=== PATIENT | female | born 1985 | race Caucasian/White ===

== ENCOUNTER 2025-02-04 10:35 | Inpatient (IN) | payer OTHER, SELFPAY ==
[2025-02-04] VITALS (58 sets, daily range): BP systolic 101–140; BP diastolic 58–100; PULSE 97–123; RESP 15–36; TEMP 37.6; O2SAT 96–100; BMI 18.8; BMI 19.8
--- NOTE | 2025-02-04 10:38 | CTR_ITS ---
PROCEDURE INFORMATION: Exam: CT Abdomen And Pelvis With Contrast Exam date and time: 02/04/2025 11:19 AM Age: 40 years old Clinical indication: Abdominal pain; Epigastric; Additional info: Abd pain TECHNIQUE: Imaging protocol: Computed tomography of the abdomen and pelvis with contrast. Axial, coronal and sagittal reformatted images were created and reviewed. Radiation optimization: All CT scans at this facility use at least one of these dose optimization techniques: automated exposure control; mA and/or kV adjustment per patient size (includes targeted exams where dose is matched to clinical indication); or iterative reconstruction. Contrast material: OMNI 350; Contrast volume: 80 ml; Contrast route: INTRAVENOUS (IV); COMPARISON: No relevant prior studies available. RADIATION DOSE METRICS: Total DLP (mGy-cm): 341.93 FINDINGS: Esophagus: Mild nonspecific distal esophageal wall thickening, suggesting chronic reflux/esophagitis. Liver: Diffuse hepatic steatosis. Gallbladder and biliary ducts: No radiodense gallstones. No biliary ductal dilatation. Pancreas: Unremarkable. Spleen: 1.9 cm splenic cyst. Adrenal glands: Normal. No mass. Kidneys and ureters: 4 mm low-density left renal lesion, too small to characterize. 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 No radiodense calculi. No hydronephrosis. Stomach and bowel: No bowel wall thickening. No obstruction. No pneumatosis. Appendix: Normal. Intraperitoneal space: No free fluid. No organized fluid collection. No free air. Vasculature: Unremarkable. No aneurysm. Lymph nodes: No pathologically enlarged lymph nodes. Urinary bladder: Unremarkable as visualized. Reproductive: Unremarkable. Bones/joints: No acute osseous abnormality. Soft tissues: Unremarkable. CT/CT abdomen pelvis w con* [id number]: 1. No CT evidence of acute intra-abdominal or pelvic pathology. 2. Additional findings, as above. COMMENTS: Consistent with the [employer]'s Incidental Findings Committee white paper (J Am Evie Radiol 2018): Any incidental renal lesion less than 1 cm or classified as too small to characterize, or any incidental cystic renal lesion characterized as simple-appearing, is likely benign. No follow-up imaging is recommended for these lesions per consensus recommendations based on imaging criteria.
--- NOTE | 2025-02-04 10:48 | ED_ITS ---
HPI - Abdominal Pain 2 General: Chief Complaint: Nausea/Vomiting/Diarrhea Stated Complaint: N/V Blood ABD Pain Time Seen by Provider: 02/04/25 10:38 Source: patient Mode of arrival: ambulatory Limitations: no limitations History of Present Illness: 40-year-old female states that she has b een having epigastric abdominal pain since this morning. States the pain is very sharp in nature she has had multiple episodes of nausea vomiting as well. Rates her pain a 7 out of 10 denies any fevers denies any diarrhea. Denies any history abdominal surgeries Related Data Home Medications ?Medication ?Instructions ?Recorded ?Confirmed dicyclomine 20 mg tablet 20 mg PO QID PRN ibs 5 02/04/25 doxycycline monohydrate 100 mg 100 mg PO BID 02/04/25 02/04/25 capsule etonogestrel 0.12 mg-ethinyl See Rx Instructions .Rout e .COMPLEX 02/04/25 02/04/25 estradiol 0.015 mg/24 hr vaginal ring (EluRyng) Allergies Allergy/AdvReac Type Severity Reaction Status Date / Time Penicillins Allergy Unknown Verified 02/04/25 10:49 Review of Systems 2 GI: Reports: abdominal pain Physical Exam 2 Const: COMMON NORMALS: no acute distress, patient oriented x3 and healthy appearing HENMT: COMMON NORMALS: normocephalic and atraumatic HEAD & SCALP: n ormocephalic and atraumatic Neck/C-Spine: COMMON NORMALS: full ROM and supple Chest: COMMONS NORMALS: normal inspection of the chest Resp: COMMON NORMALS: normal respiratory effort Cardio: COMMON NORMALS: regular rate, regular rhythm and No murmurs present (Cardio) RATE: regular rate RHYTHM: regular rhythm GI: COMMON NORMALS: Normal to inspection, nondistended, normoactive bowel sounds present, Soft to palpation and no masses PALPATION: Yes Soft to palpation OTHER: epigastric tenderness Extremity: COMMON NORMALS: normal to inspection and full ROM Neuro: COMMON NORMALS: patient oriented x3, moves all extremities and no focal motor deficits Psych: COMMON NORMALS: mental status grossly normal, Normal thought process present and cooperative THOUGHT PROCESS: Normal thought process present Skin: COMMON NORMALS: no rashes or lesions noted and no wounds GENERAL SKIN EXAM: no rashes or lesions noted Course 2 Vital Signs: Vital signs: Vital Signs Pulse Rate 102 H 02/04/25 10:59 Respiratory Rate 17 02/04/25 10:59 Blood Pressure 133/90 02/04/25 10:59 Pulse Oximetry 100 02/04/25 10:59 Oxygen Delivery Me thod Room Air 02/04/25 10:59 MDM - Abdominal Pain Medical Decision Making Patient presents here with nausea vomiting all abdominal pain differential includes bowel obstruction, appendicitis, pancreatitis. Did a CT scan showed no above findings. Patient was found to be in DKA. She has no history of diabetes does have an elevated anion gap CO2 of 5 along with elevated glucose. Patient was given IV fluids here along with insulin drip. Had replace potassium as her potassium was 3.8. I did speak to Dr. Alberts will admit to ICU critical care time 40 minutesThe high probability of a clinically significant, sudden or life threatening deterioration of the patient's endocrine system(s) required my full and direct attention, intervention and personal management. The critical care time is as shown. This time is in addition to time spent performing any reported procedures but includes the following: x data and vital sign review and interpretation x patient assessment, examination and intervention x documentation x medication orders and management Medical Records I reviewed the patient's medical records. Lab Data I reviewed the patient's lab results. 02/04/25 10:44 02/04/25 10:44 Labs/Radiology: Laboratory Results WBC 16.35 10^3/uL (3.29-11.43) H 02/04/25 10:44 RBC 4.71 10^6/uL (3.85-5.65) 02/04/25 10:44 Hgb 14.00 g/dL (11.27-16.99) 02/04/25 10:44 Hct 42.0 % (36-47) 02/04/25 10:44 MCV 89.2 fl (85-98) 02/04/25 10:44 MCH 29.7 pg (27-33) 02/04/25 10:44 MCHC 33.3 g/dL (30-55) 02/04/25 10:44 RDW 11.7 % (12.1-15.1) L 02/04/25 10:44 Plt Count 339 10^3/cmm (157-399) 02/04/25 10:44 MPV 10.2 fL (7.4-10.4) 02/04/25 10:44 Neut % (Auto) 84.5 % 02/04/25 10:44 Lymph % (Auto) 11.7 % 02/04/25 10:44 Pratt % (Auto) 2.6 % 02/04/25 10:44 Eos % (Auto) 0.0 % 02/04/25 10:44 Baso % (Auto) 0.2 % 02/04/25 10:44 Neut # (Auto) 13.81 10^3/uL (1.8-7.7) H 02/04/25 10:44 Lymph # (Auto) 1.9 10^3/uL (0.8-4.8) 02/04/25 10:44 Pratt # (Auto) 0.4 10^3/uL (0.2-0.9) 02/04/25 10:44 Eos # (Auto) 0.0 10^3/uL (0.0-0.8) 02/04/25 10:44 Baso # (Auto) 0.0 10^3/uL (0.0-0.1) 02/04/25 10:44 Nucleated RBC % (auto) 0 % 02/04/25 10:44 Nucleated RBCs # 0.0 /100WBC 02/04/25 10:44 Sodium 128 mmol/L (136-145) L 02/04/25 10:44 Potassium 3.8 mmol/L (3.5-5.1) 02/04/25 10:44 Chloride 87 mmol/L (98-107) L 02/04/25 10:44 Carbon Dioxide 5 mmol/L (22-29) L* 02/04/25 10:44 Anion Gap 39.8 (5-19) H 02/04/25 10:44 BUN 21 mg/dL (6-20) H 02/04/25 10:44 Creatinine 0.9 mg/dL (0.5-0.9) 02/04/25 10:44 GFR Calculation 68.7 mL/min (90-130) L 02/04/25 10:44 Glucose 474 mg/dL (65-115) H 02/04/25 10:44 Calculated Osmolality 290 mOsm/kg (285-295) 02/04/25 10:44 Calcium 9.9 mg/dL (8.5-10.5) 02/04/25 10:44 Total Bilirubin 0.5 mg/dL (0.15-1.2) 02/04/25 10:44 AST 11 U/L (0-32) 02/04/25 10:44 ALT 20 U/L (0-33) 02/04/25 10:44 Alkaline Phosphatase 87 U/L (35-105) 02/04/25 10:44 Total Protein 8.8 g/dL (6.6-8.7) H 02/04/25 10:44 Albumin 4.5 g/dL (3.5-5.2) 02/04/25 10:44 Globulin 4.3 g/dL (1.3-4.6) 02/04/25 10:44 Lipase 11 U/L (13-60) L 02/04/25 10:44 HCG, Qual Negative (Negative) 02/04/25 10:44 Urine Color Yellow (Yellow) 02/04/25 11:11 Urine Appearance Clear (CLEAR) 02/04/25 11:11 Urine pH 5.0 (5-7) 02/04/25 11:11 Ur Specific [place] 1.026 (1.005-1.030) 02/04/25 11:11 Urine Protein 1+ (Negative) A 02/04/25 11:11 Urine Glucose (UA) 3+ (Normal) H 02/04/25 11:11 Urine Ketones 4+ (Negative) 02/04/25 11:11 Urine Blood Trace (Negative) A 02/04/25 11:11 Urine Nitrate Negative (Negative) 02/04/25 11:11 Urine Bilirubin Negative (Negative) 02/04/25 11:11 Urine Urobilinogen 0.2 mg/dL (Negative) 02/04/25 11:11 Ur Leukocyte Esterase Negative (Negative) 02/04/25 11:11 Urine RBC 3-5 /hpf (0-2) 02/04/25 11:11 Urine WBC 6-10 /hpf (0-5) 02/04/25 11:11 Ur Squamous Epith Cells 11-20 /hpf (0-5) H 02/04/25 11:11 Amorphous Sediment Not Reportable 02/04/25 11:11 Urine Bacteria 2+ /hpf (NONE) H 02/04/25 11:11 Hyaline Casts 4.52 /lpf 02/04/25 11:11 Urine Yeast 2+ /hpf H 02/04/25 11:11 Serum Ketones Positive (Negative) H 02/04/25 10:44 All radiology interpretation(s) finalized by discharge Critical Care Time 2 Critical Care Time: Critical Care Time: Yes Total Critical Care Time: 40 Attestation: The high probability of a clinically significant, sudden or life threatening deterioration of the patient's endocrine system(s) required my full and direct attention, intervention and personal management. The critical care time is as shown. This time is in addition to time spent performing any reported procedures but includes the following: [x] Data and vital sign review and interpretation [x] Patient assessment, examination and intervention [x] Documentation [x] Medication orders and management Discharge Plan Discharge Patient Disposition: Admitted As Inpatient Clinical Impression: DKA (diabetic ketoacidosis) Condition: Stable Coding Level of Care Code ED Steam [employer] Control Room Operator for Tomas Birch
[2025-02-04 10:49] LABS: Hematocrit 42.0 % (36-47); Hemoglobin 14.00 g/dL (11.27-16.99); Mean Corpuscular HGB Conc 33.3 g/dL (30-55); Mean Corpuscular Hemoglobin 29.7 pg (27-33); Mean Corpuscular Volume 89.2 fl (85-98); Nucleated Red Blood Cells % 0 %; Platelet Count 339 10^3/cmm (157-399); Red Blood Count 4.71 10^6/uL (3.85-5.65); White Blood Count 16.35 10^3/uL (3.29-11.43)
--- OUTSIDE RECORDS SUMMARY | 2025-02-04 10:50 | XMS_ITS | Data Portability ---
Author Organization [facility] Address [address] [place] [phone] Care Team Providers Care Comparison Shopper Name Role Phone GUS SALGADO Primary Care Provider Unavailabl e Assessment No assessment recorded. Plan of Treatment Reminders Order Date Submit Date Provider Last Modified By Organization Details Last Modified Time Details Appointments None recorded. Lab None recorded. Referral None recorded. Procedures None recorded. Surgeries None recorded. Imaging None recorded. Medication Orders erythromyci n 5 mg/gram (0.5 %) eye ointment 2024 025 UMESH [id number], [address], [facility] [address], [place], [address], 08:48:05 mupirocin 2 % topical ointment 2022 023 [email or web address] [facility] #[id number], [address], [facility] [address], [place], [address], 08:30:54 neomycin-po lymyxin-dex ameth 3.5 mg/mL-10,00 0 unit/mL-0.1 % eye drops 2022 023 [email or web address] [id number], [address], [facility], [place], [address], 08:30:47 Patient TargetsNo targets recorded. Patient InstructionsNo instructions recorded. Reason for Referral None Reported. 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 3 08:45:33 Problem Notes None recorded. Medical Equipment None Reported. Allergies Allergen ID Allergen Name Allergen Category Reaction Reaction Severity Criticality Documentation Date Start Date Code Code System Note Provider Name and Address Organization Details Recorded Time 5013 Product containin g penicilli n (product) medicatio n Not available Not available Not available 09/08/2022 89006 8001 SNOMED [facility] 12:29:12 Medications Name Sig Start Date Stop Date Status Note LastModified by Organization Details LastModified Time prednisolon e acetate 1 % eye drops,suspe nsion INSTILL 1 DROP INTO AFFECTED EYE 4 TIMES A DAY active Not Available Not Available No t Available dicyclomine 20 mg tablet TAKE 1 TABLET BY MOUTH FOUR TIMES A DAY FOR 10 DAYS active Not Available Not Available No t Available erythromyci n 5 mg/gram (0.5 %) eye ointment APPLY 1 CM RIBBON INTO THE LOWER EYELID IN THE AFFECTED EYE(S) 4-5 TIMES PER DAY FOR UP TO 1 WEEK active Not Available Not Available No t Available neomycin-po lymyxin-dex ameth 3.5 mg/mL-10,00 0 unit/mL-0.1 % eye drops INSTILL 1 DROP INTO AFFECTED EYE(S) EVERY 3 TO 4 HOURS 10/03 completed Not Available Not Available Not Available mupirocin 2 % topical ointment APPLY A SMALL AMOUNT TO AFFECTED AREA 3 TIMES A DAY 10/03 completed Not Available Not Available Not Available EluRyng 0.12 mg-0.015 mg/24 hr vaginal ring INSERT 1 RING & WEAR CONTINUOU SLY FOR 3 WEEKS REMOVE FOR 1 WEEK. REPEAT WITH NEW RING. active Not Available Not Available No t Available Vitals Date Recorded Body height Body mass index (BMI) Body weight Oxygen saturation Heart rate Body temperature Systolic And Diastolic Provider Name and Address Organization Details Last Updated DateTime 3 154.94 cm 19.7 kg/m2 55704.6 1 g 97 % 102 /min 97.7 [degF] 115/62 mm[Hg] FORTINO RANDOLPH [facility] 3 12:28:49 Date Recorded Body height Body mass index (BMI) Body weight Respiratory rate Oxygen saturation Heart rate Body temperature Systolic And Diastolic Provider Name and Address Organization Details Last Updated DateTime 5 154.94 cm 19.3 kg/m2 96137.4 2 g 17 /min 99 % 89 /min 98.2 [degF] 114/78 mm[Hg] CATHERINE BOCANEGRA [facility] 5 08:30:09 Date Recorded Body height Body weight Body mass index (BMI) Oxygen saturation Heart rate Respiratory rate Body temperature Systolic And Diastolic Provider Name and Address Organization Details Last Updated DateTime 3 154.94 cm 92677.2 8 g 19.9 kg/m2 99 % 89 /min 16 /min 97.1 [degF] 128/84 mm[Hg] Rosario Colbychristian [facility] 3 08:36:41 Social History Question Answer Notes LastModified by Organizat ion Details LastModified Time Tobacco Smoking Status Former Smoker CATHERINE BOCANEGRA [facility] 10/03/2024 08:31:23 When Did You Quit Smoking? 6-10yearssin celastcigare tte [email or web address] Information not available 10/03/2024 What Was The Date Of Your Most Recent Tobacco Screening? 10/03/2024 [email or web address] Information not available 10/03/2024 Sex: Unknown Functional Status None recorded. Mental Status None recorded. Family History Nothing Reported. Medical History No medical history recorded. Gynecological HistoryNo gynecological history recorded. Obstetrics History GPAL:G 0 P 0 0 0 0 Past Encounters Encounter ID Performer Location Encounter Start Date Encounter Closed Date Diagnosis/Indication Diagnosis SNOMED-CT Code Diagnosis ICD10 Code Diagnosis IMO Codes Diagnosis Note [id number] DEBBIE ANGEL PA-C [facility] ([facility] [address]) [address] [place] [address] 09/08/2022 11:31:49 09/08/2022 13:29:35 Acute conjunctivitis 47607080 H10.[address] 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 Possible reaction to some of the medication s that she has used to treat.. Encouraged patient to stop over-the-c ounter treatment and will start mupirocin. Educated the patient on wound care. Follow-up if symptoms do not improve. [id number] Gus Salgado DO [facility] ([facility] [address]) [address] [place] [phone] 10/03/2024 08:22:13 10/03/2024 08:55:51 Abrasion of left cornea 1938356620 8639892 S05.02XA [id number] will start abx ointment. ok to use eye rinse as well. use sunglasses to decrease light. Return to office with no improvemen t or any problems. Go to ER with severe worsening or severe problems. Health Concerns Section Related Observation LastModified by Organization Detai ls LastModified Time None Recorded Concern Status LastModified by Organization Details LastModified Time None Recorded Advance Directives Directive None Recorded Payers Insurance Date Sequence Insurance Name Policy Number Policy Honeycutt Covered Member ID Honeycutt Member ID Guarantor Name 10/10/2024 1 [facility] ([facility] [id number] Jazzy Ortiz [id number] Jazzy Ortiz Notes Date Note Type Note Provider Name and Address Organization Details Recorded Time 09/08/2022 text/html Red EyeReported by PatientHPIFor quality, patient reportsaching. For context, patient reportschemical exposure. For associated symptoms, patient reportsblurred vision,sensitivity to light,watery discharge from the eyes, andheadachebut reportsno eyelid edemaandno nausea/vomiting. For location, patient reportsright. For severity, patient reportsmoderate. For duration, patient reportsconstant. For onset/timing, patient [id number]. For modifying factors, patient reportsnothing gives relief.ROS as noted in the [facility] DEBBIE ANGEL PA-C [address] [place] [address], [phone], [facility] 09/08/2022 12:45:17 03/05/2023 text/html Skin LesionRepor neptali by PatientHPIFor associated symptoms, patient reportsdraining,lesio ns multiplying, andlesions spreadingbut reportsno fever,no nausea,no vomiting, andno diarrhea. For location, patient reportshand,abdomen, andleg. For quality, patient reportstender,drainag e, andbecoming more symptomatic. For severity, patient reportsmoderate. For duration, patient reports1 weeks. For timing, patient reportsgradual. For context, patient reportsno known trigger. For alleviating factors, patient reportsnone. For aggravating factors, patient reportsnone. For prior treatments, patient reportsotc topical treatment.ROS as noted in the [facility] Andrea Vasquez MD [address] [place] [address], [phone], [facility] 03/05/2023 08:56:59 10/03/2024 text/html ROS as noted in the [facility] walk-in; PCP Dr. Salgado Patient scratched her left eye last week. with her hair comb. Eye is painful. She had steroid eye drops from a previous infection and tried to use them, did not help.no purulence from eye. no vision change. just very senstive to light with clear watering. Gus Salgado, [address] [place] [address], [phone], [facility] 10/03/2024 08:49:49 OBGyn Episode No OBEpisode recorded.
[2025-02-04] MEDS: ondansetron 2 mg/ML SDV 2 mL 4 MG IVP ×3 (10:52→22:18)
[2025-02-04] MEDS: morphine 4 mg/mL SDV 1 mL IVP (10:53)
[2025-02-04 11:08] LABS: HCG, Serum Qual Negative (Negative)
[2025-02-04 11:14] LABS: Alanine Aminotransferase 20 U/L (0-33); Albumin Level 4.5 g/dL (3.5-5.2); Alkaline Phosphatase 87 U/L (35-105); Anion Gap 39.8 (5-19); Aspartate Amino Transferase 11 U/L (0-32); Blood Urea Nitrogen 21 mg/dL (6-20); Calcium 9.9 mg/dL (8.5-10.5); Chloride 87 mmol/L (98-107); Globulin 4.3 g/dL (1.3-4.6); Glucose 474 mg/dL (65-115); Lipase 11 U/L (13-60); Osmolality Calculated 290 mOsm/kg (285-295); Potassium 3.8 mmol/L (3.5-5.1); Sodium 128 mmol/L (136-145); Total Protein 8.8 g/dL (6.6-8.7)
[2025-02-04] MEDS: iohexol 350 mg/mL 500 mL Btl (per mL) IV (11:24)
[2025-02-04 11:25] LABS: Glucose Urine UA 3+ (Normal); Nitrate Urine Negative (Negative); Specific Gravity, Urine 1.026 (1.005-1.030)
[2025-02-04 11:30] LABS: Carbon Dioxide 5 mmol/L (22-29)
[2025-02-04 11:30] LABS: Add Urine Microscopic? YES
[2025-02-04 11:37] LABS: Ketone (Acetest) Serum Positive (Negative)
[2025-02-04 11:46] LABS: UA Slide Review UA Slide Review Perf
[2025-02-04 12:06] LABS: Arterial Blood Gas Hematocrit 40.7 % (37-47); Blood Gas Operator Identificat GD; Blood Gas Sample Site Brachial, right; Blood Gas Sample Type Arterial; HCO3 ABG 4.4 mmol/L (22-26); PO2 ABG 137.0 mmHg (80.0-100.0); PO2 FiO2 Ratio Arterial Blood 652
[2025-02-04 12:07] LABS: ABG PCO2 15.4 mmHg (35-45); ABG PH Result 7.06 (7.35-7.45)
[2025-02-04] MEDS: INSULIN REGULAR IN 0.9 % NACL 100 UNIT/100 ML BAG IV (12:10)
[2025-02-04] MEDS: potassium phosphate (mEq K) 40 MEQ in sodium chloride 0.9% (100 ml) 100 ML 27.25 MEQ IV (12:15)
--- NOTE | 2025-02-04 12:25 | ECG_ITS ---
[facility] Test Date: 2025-02-04 Pat Name: Jazzy Ortiz Department: Room: ICU10 Gender: Female Internal Carver: : 1985 Requested By: Niko Doe Order Number: [id number] Luana MD: Seth Lane M.D. Measurements Intervals [place] Rate: 110 P: 73 OR: 124 QRS: 66 QRSD: 95 T: 51 QT: 349 QTc: 473 Interpretive Statements SINUS TACHYCARDIA POSSIBLE LEFT ATRIAL ENLARGEMENT [-0.1mV P-WAVE IN V1/V2] INCOMPLETE RIGHT BUNDLE BRANCH BLOCK [90+ ms QRS DURATION, TERMINAL R IN V1/V2, 40+ ms S IN I/aVL/V4/V5/V6] MODERATE T-WAVE ABNORMALITY, CONSIDER ANTERIOR ISCHEMIA [-0.1+ mV T-WAVE IN V3/V4] No previous ECG available for comparison Electronically Signed On 02-04-2025 14:21:03 RES HABILITATION ASSISTANT by Seth Lane M.D. [email or web address]
--- NOTE | 2025-02-04 12:41 | P.HP_ITS ---
Providers/Chief Complaint 2 Admitting Physician: Niko Doe MD Chief Complaint: N/V Blood ABD Pain History of Present Illness Jazzy Ortiz is a 40 year old female with a past medical history of colitis, who presents [facility] due to nausea, vomiting, fatigue, malaise, reported fevers and chills. Currently patient is alert oriented x 3, follow commands, she does report right upper quadrant abdominal pain, reports subjective fevers and chills, she tells me that she noticed some facial swelling 2 days ago, and there was concerns for possible sinusitis, so she was started on doxycycline, no lip swelling, no tongue swelling, no shortness of breath, states that she has developed a rash on her face, she also reports intractable nausea vomiting, no bloody or black stools reported no recent travel, no sick contacts, no cough, no shortness of breath no chest pain, no recent travel, no known sick contacts, does have marijuana use, no alcohol use, prior history of smoking, Review of Systems 2 Const: Reports: fever(s), chills, fatigue and malaise Card: Denies: chest pain Resp: Denies: dyspnea GI: Reports: nausea and vomiting; Denies: abdominal pain or diarrhea : Denies: flank pain or difficulty voiding Musc: Denies: back pain Skin/Breast: Denies: rash Neuro: Denies: headache(s) Medications/Allergies Home Medications ?Medication ?Instructions ?Recorded ?Confirmed ?Last Taken ?Type dicyclomine 20 mg tablet 20 mg PO QID PRN ibs 5 02/04/25 Unknown History doxycycline monohydrate 100 mg 100 mg PO BID 02/04/25 02/04/25 02/04/25 History capsule etonogestrel 0.12 mg-ethinyl See Rx Instructions .Rout e .COMPLEX 02/04/25 02/04/25 Unknown History estradiol 0.015 mg/24 hr vaginal ring (EluRyng) Allergies Allergy/AdvReac Type Severity Reaction Status Date / Time Penicillins Allergy Unknown Verified 02/04/25 10:49 Vitals/I&O/Wt Last Vital Signs Pulse 112 H 02/04/25 12:39 Resp 16 02/04/25 12:39 BP 126/77 02/04/25 12:39 Pulse Ox 99 02/04/25 12:39 O2 Del Method Room Air 02/04/25 12:20 02/03/25 02/04/25 02/04/25 22:59 06:59 14:59 Intake Total 1000 / 1000 Balance 1000 / 1000 Weight last 48 hrs Weight 47.627 kg Weight 45.359 kg Physical Exam 2 Const: COMMON NORMALS: no acute distress and patient oriented x3 HENMT: COMMON NORMALS: normocephalic Eye: COMMON NORMALS: Equal, round and reactive pupils present Neck/C-Spine: COMMON NORMALS: full ROM and no lymphadenopathy Resp: COMMON NORMALS: normal respiratory effort, No retractions, No use of accessory muscles and clear to auscultation bilaterally AUSCULTATION: clear to auscultation bilaterally Cardio: COMMON NORMALS: regular rate, regular rhythm, S1 normal heart sound present and S2 normal heart sound present RATE: regular rate RHYTHM: r egular rhythm HEART SOUNDS: S1 normal heart sound present and S2 normal heart sound present GI: COMMON NORMALS: Normal to inspection, nondistended, normoactive bowel sounds present, Soft to palpation and non-tender : COMMON NORMALS: Yes no CVA tenderness Extremity: COMMON NORMALS: no calf tenderness and no pedal edema Neuro: COMMON NORMALS: patient oriented x3, CN's II-XII intact bilaterally and moves all extremities Psych: COMMON NORMALS: mental status grossly normal Data 02/04/25 10:44 02/04/25 10:44 A&P Assessment and plan 1. DKA (diabetic ketoacidosis): Plan: Diabetic ketoacidosis - No known history of type I or type 2 diabetes - Lipase within normal limits - A1c pending - UA with evidence of UTI - Chest x-ray ordered - Blood cultures ordered - Troponin series ordered - CRP, Pro-Tom, lactic acid -TSH -Lipid panel - Right upper quadrant ultrasound Plan - Has received 2 L fluid bolus, 60 mg of p.o. potassium, 40 mEq of potassium phosphorus in the emergency room - Will give another liter of fluid normal saline bolus -Start normal saline 150 cc an hour -BMP every 4 hours, phosphorus every 4 hours, magnesium every 4 hours -Once blood sugars less than 200 switch to D5 half-normal saline with 20 KCl -Recheck ABG at 4 PM will consider bicarb drip based on clinical progress -Vancomycin -Aztreonam -Blood cultures -Full code -Lovenox for DVT prophylaxis PDMP PDMP Reviewed: Not Reviewed Attestations 2 Medical Necessity Statement*: Patient requires hospitalization for diabetic ketoacidosis, inpatient, greater than 2 midnights Coding Level of Care Code Critical Care >/= 30 minutes Critical care time (in minutes): 45 The high probability of a clinically significant, sudden or life threatening deterioration, as referenced in this documentation, required my full and direct attention, intervention and personal management. The critical care time shown is in addition to time spent performing any reported separately billable procedures and includes the following: [x] Data and vital sign review and interpretation [x ] Patient assessment, examination and intervention [x] Medication orders and management [x] Patient/Family updates as able [x] Care Coordination and Documentation. Diagnoses DKA (diabetic ketoacidosis) E11.10
[2025-02-04 12:44] LABS: Troponin(5th) Baseline < 6 ng/L (0-10)
[2025-02-04 12:45] LABS: Lactic Sepsis W/Reflex 3.6 mmol/L (0.5-2.2)
[2025-02-04 12:46] LABS: PCP Screen Urine Negative (Negative)
[2025-02-04 12:54] LABS: Estmated Average Glucose 283; Hemoglobin A1C 11.5 % (4.0-6.0)
--- NOTE | 2025-02-04 12:56 | USR_ITS ---
PROCEDURE INFORMATION: Exam: US Abdomen, Limited; Right Upper Quadrant Exam date and time: 02/04/2025 3:31 PM Age: 40 years old Clinical indication: Abdominal pain; Localized; Right upper quadrant (ruq) TECHNIQUE: Imaging protocol: Real time ultrasound of the abdomen with image documentation. Limited exam focused on the right upper quadrant. COMPARISON: CT abdomen pelvis w con* [id number] 02/04/2025 11:19 AM FINDINGS: Liver: Hepatic length measures 14.2 cm. Hepatic steatosis. Indeterminate right hepatic hypoechoic lesion 2.3 x 1.4 x 1.7 cm. Hypoechoic area measuring 2 x 1 x 1 cm adjacent to the gallbladder. Gallbladder: No gallstone. Biliary ducts: Common bile duct measures 3 mm. Pancreas: Visualized pancreas is unremarkable. Right kidney: Right kidney 11.9 x 7.1 x 4.6 cm. Right renal lower pole echogenic lesion measuring 1.8 x 1.8 x 1.6 cm. Inferior vena cava: Visualized abdominal aorta and inferior vena cava are within normal limits. Portal venous: Main portal vein is patent with hepatopetal flow. US/US abdomen limited [id number] IMPRESSION: 1. Indeterminate right hepatic hypoechoic lesion 2.3 x 1.4 x 1.7 cm. Hypoechoic area measuring 2 x 1 x 1 cm adjacent to the gallbladder. These findings are not seen on the CAT scan. Findings could represent fatty sparing. MRI of the liver for further evaluation is advised. 2. Right renal lower pole echogenic lesion measuring 1.8 x 1.8 x 1.6 cm. 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 3. Hepatic steatosis.
[2025-02-04] MEDS: pantoprazole 40 mg SDV IVP (13:10)
[2025-02-04] MEDS: aztreonam 1,000 MG in sodium chloride 0.9% (plus) 50 ML 100 MG IV (13:10)
[2025-02-04 13:22] LABS: Cholesterol 253 mg/dL (0-200); HDL Cholesterol 74 mg/dL (60-100); Triglycerides 112 mg/dL (0-150)
[2025-02-04 13:28] LABS: Anion Gap 33.4 (5-19); Blood Urea Nitrogen 19 mg/dL (6-20); Calcium 8.7 mg/dL (8.5-10.5); Chloride 96 mmol/L (98-107); Glucose 394 mg/dL (65-115); Magnesium 2.1 mg/dL (1.7-2.3); Osmolality Calculated 289 mOsm/kg (285-295); Potassium 4.4 mmol/L (3.5-5.1); Sodium 130 mmol/L (136-145); Thyroid Stimulating Hormone 2.71 uIU/mL (0.27-4.20)
[2025-02-04 13:29] LABS: Procalcitonin 0.05 ng/mL (0-0.5)
[2025-02-04 13:35] LABS: Respiratory Syncytial Virus Ce NEGATIVE (Negative); SARS-CoV-2 PCR NEGATIVE (Negative)
[2025-02-04 13:42] LABS: Alcohol Level < 10 mg/dL (0-10)
[2025-02-04 13:44] LABS: Carbon Dioxide 5 mmol/L (22-29)
[2025-02-04 13:47] LABS: Reflex Lactate Order REFLEX LACTIC ORDERD
--- NOTE | 2025-02-04 13:49 | XRR_ITS ---
PROCEDURE INFORMATION: Exam: XR Chest Exam date and time: 02/04/2025 2:53 PM Age: 40 years old Clinical indication: Other: Dka; Additional info: Dka, infection? TECHNIQUE: Imaging protocol: Radiologic exam of the chest. Views: 1 view. COMPARISON: CT abdomen pelvis w con* [id number] 02/04/2025 11:19 AM FINDINGS: Lungs: Unremarkable. No consolidation. Pleural spaces: No pneumothorax. Heart/Mediastinum: Unremarkable. No cardiomegaly. Bones/joints: Unremarkable. XR/XR chest 1V portable [id number] IMPRESSION: No acute findings.
[2025-02-04 14:04] LABS: Lactic Acid level (Lactate) 1.5 mmol/L (0.5-2.2)
--- NOTE | 2025-02-04 14:45 | PC.NURSE ---
Physician communication: Contacted Dr. Doe for maintenance dextrose orders, BG 254. Order received to continue with Insulin drip till BG below 200 and then start d5 1/2 NS with 20kcl at 150cc/hr.
[2025-02-04] MEDS: metroNIDAZOLE IV 500 MG/100 ML PREMIX 100 MG IV ×2 (15:00→21:57)
[2025-02-04] MEDS: D5-NS 0.45% + KCL 20 mEq 20 MEQ/1,000 ML BAG 150 MEQ IV ×2 (15:35→21:57)
[2025-02-04 16:23] LABS: ABG PCO2 24.6 mmHg (35-45); ABG PH Result 7.23 (7.35-7.45); Arterial Blood Gas Hematocrit 33.8 % (37-47); Blood Gas Operator Identificat GD; Blood Gas Sample Site Brachial, right; Blood Gas Sample Type Arterial; HCO3 ABG 10.4 mmol/L (22-26); PO2 ABG 103.0 mmHg (80.0-100.0); PO2 FiO2 Ratio Arterial Blood 490
[2025-02-04 16:38] LABS: Troponin 5 6HR < 6.0 ng/L (0-10); Troponin 5 6HR Delta 0 ng/L (0-12)
[2025-02-04] MEDS: metoclopramide 5 mg/mL SDV 2 mL IVP (16:50)
[2025-02-04 18:11] LABS: Anion Gap 30.5 (5-19); Blood Urea Nitrogen 19 mg/dL (6-20); Calcium 8.0 mg/dL (8.5-10.5); Chloride 104 mmol/L (98-107); Glucose 283 mg/dL (65-115); Osmolality Calculated 293 mOsm/kg (285-295); Potassium 4.5 mmol/L (3.5-5.1); Sodium 135 mmol/L (136-145)
[2025-02-04 18:13] LABS: Carbon Dioxide 5 mmol/L (22-29)
[2025-02-04 18:19] LABS: Magnesium 1.9 mg/dL (1.7-2.3)
[2025-02-04 19:07] LABS: Anion Gap 23.8 (5-19); Blood Urea Nitrogen 11 mg/dL (6-20); Calcium 7.7 mg/dL (8.5-10.5); Chloride 108 mmol/L (98-107); Glucose 232 mg/dL (65-115); Magnesium 1.8 mg/dL (1.7-2.3); Osmolality Calculated 289 mOsm/kg (285-295); Potassium 4.8 mmol/L (3.5-5.1); Sodium 136 mmol/L (136-145)
[2025-02-04 19:08] LABS: Carbon Dioxide 9 mmol/L (22-29)
[2025-02-04 21:30] LABS: Anion Gap 21.1 (5-19); Blood Urea Nitrogen 9 mg/dL (6-20); Calcium 7.6 mg/dL (8.5-10.5); Carbon Dioxide 10 mmol/L (22-29); Chloride 108 mmol/L (98-107); Glucose 255 mg/dL (65-115); Magnesium 1.7 mg/dL (1.7-2.3); Osmolality Calculated 287 mOsm/kg (285-295); Potassium 4.1 mmol/L (3.5-5.1); Sodium 135 mmol/L (136-145)
[2025-02-05] VITALS (38 sets, daily range): BP systolic 103–132; BP diastolic 61–98; PULSE 85–110; RESP 16–37; TEMP 36.7–37.6; O2SAT 95–99
[2025-02-05] MEDS: pantoprazole 40 mg SDV IVP ×2 (00:57→12:44)
[2025-02-05] MEDS: aztreonam 1,000 MG in sodium chloride 0.9% (plus) 50 ML 100 MG IV ×2 (00:57→12:44)
[2025-02-05] MEDS: vancomycin 500 MG in sodium chloride 0.9% (plus) 100 ML 200 MG IV (01:49)
[2025-02-05 02:22] LABS: Anion Gap 16.7 (5-19); Blood Urea Nitrogen 6 mg/dL (6-20); Calcium 7.3 mg/dL (8.5-10.5); Carbon Dioxide 14 mmol/L (22-29); Chloride 109 mmol/L (98-107); Glucose 232 mg/dL (65-115); Magnesium 1.7 mg/dL (1.7-2.3); Osmolality Calculated 287 mOsm/kg (285-295); Potassium 3.7 mmol/L (3.5-5.1); Sodium 136 mmol/L (136-145)
[2025-02-05 04:57] LABS: Hematocrit 26.9 % (36-47); Hemoglobin 9.00 g/dL (11.27-16.99); Mean Corpuscular HGB Conc 33.5 g/dL (30-55); Mean Corpuscular Hemoglobin 29.6 pg (27-33); Mean Corpuscular Volume 88.5 fl (85-98); Nucleated Red Blood Cells % 0 %; Platelet Count 193 10^3/cmm (157-399); Red Blood Count 3.04 10^6/uL (3.85-5.65); White Blood Count 11.48 10^3/uL (3.29-11.43)
[2025-02-05] MEDS: D5-NS 0.45% + KCL 20 mEq 20 MEQ/1,000 ML BAG 150 MEQ IV (05:11)
[2025-02-05] MEDS: metroNIDAZOLE IV 500 MG/100 ML PREMIX 100 MG IV ×3 (05:14→21:18)
[2025-02-05 05:17] LABS: Alanine Aminotransferase 11 U/L (0-33); Albumin Level 2.9 g/dL (3.5-5.2); Alkaline Phosphatase 52 U/L (35-105); Anion Gap 14.6 (5-19); Aspartate Amino Transferase 10 U/L (0-32); Blood Urea Nitrogen 4 mg/dL (6-20); Calcium 7.2 mg/dL (8.5-10.5); Carbon Dioxide 16 mmol/L (22-29); Chloride 108 mmol/L (98-107); Globulin 2.5 g/dL (1.3-4.6); Glucose 214 mg/dL (65-115); Magnesium 1.7 mg/dL (1.7-2.3); Osmolality Calculated 283 mOsm/kg (285-295); Potassium 3.6 mmol/L (3.5-5.1); Sodium 135 mmol/L (136-145); Total Protein 5.4 g/dL (6.6-8.7)
[2025-02-05] MEDS: insulin glargine 100 units/1 mL 9 UNIT SUBCUT (06:00)
[2025-02-05] MEDS: metoclopramide 5 mg/mL SDV 2 mL IVP (08:28)
--- NOTE | 2025-02-05 09:22 | CTR_ITS ---
PROCEDURE INFORMATION: Exam: CT Head Without Contrast Exam date and time: 02/05/2025 10:21 AM Age: 40 years old Clinical indication: Injury or trauma; Other: Dog scratch inner upper lip; Laceration; Without residual foreign body; Additional info: Dog scratch, in mouth, under upper gum, facial swelling TECHNIQUE: Imaging protocol: Computed tomography of the head without contrast. Radiation optimization: All CT scans at this facility use at least one of these dose optimization techniques: automated exposure control; mA and/or kV adjustment per patient size (includes targeted exams where dose is matched to clinical indication); or iterative reconstruction. COMPARISON: CT facial bones w con [id number] 02/05/2025 10:21 AM RADIATION DOSE METRICS: Total DLP (mGy-cm): 1020.5 FINDINGS: Brain: Normal. No hemorrhage. Unremarkable white matter. No mass effect. Cerebral ventricles: No ventriculomegaly. Paranasal sinuses: Visualized sinuses are unremarkable. No fluid levels. Mastoid air cells: Visualized mastoid air cells are well aerated. Bones: Unremarkable. No acute fracture. Soft tissues: Unremarkable. CT/CT head con* [id number] IMPRESSION: No acute intracranial abnormality.
--- NOTE | 2025-02-05 09:22 | CTR_ITS ---
PROCEDURE INFORMATION: Exam: CT Maxillofacial With Contrast Exam date and time: 02/05/2025 10:21 AM Age: 40 years old Clinical indication: Injury or trauma; Other: Dog scratch inside upper lip; Laceration; Lip/oral cavity; Not specified; Additional info: Dog scratch, under upper gum, facial swelling, R/O abscess TECHNIQUE: Imaging protocol: Computed tomography of the face with contrast. Radiation optimization: All CT scans at this facility use at least one of these dose optimization techniques: automated exposure control; mA and/or kV adjustment per patient size (includes targeted exams where dose is matched to clinical indication); or iterative reconstruction. Contrast material: OMNI 350; Contrast volume: 75 ml; Contrast route: INTRAVENOUS (IV); COMPARISON: CT head wo con* [id number] 02/05/2025 10:21 AM RADIATION DOSE METRICS: Total DLP (mGy-cm): 288 FINDINGS: Paranasal sinuses: There is mild bilateral maxillary sinus thickening and contraction of the left maxillary sinus. There is ethmoid air cell thickening. There is no acute paranasal sinus fracture. Orbital cavities: Orbits are normal. Globes are unremarkable. Bones: No acute fracture. Soft tissues: There is a subperiosteal abscess adjacent to the anterior aspect of the malar heart palate and anterior maxillary spine measuring 0.5 x 1.8 x 0.8 cm. There is a surrounding significant soft tissue inflammation. In addition, there is a periapical abscess within the hard palate. This measures up to [address]/CT facial bones w con [id number] IMPRESSION: 1. Findings of a subperiosteal abscess anterior to the anterior maxillary spine and heart palate measuring up to 1.8 cm. 2. Periapical abscess involving the left 1st central incisor. 3. Contraction of the left maxillary sinus with mucosal thickening and mild right maxillary sinus mucosal thickening with mild ethmoid sinus mucosal thickening.
[2025-02-05 09:28] LABS: Anion Gap 16.3 (5-19); Blood Urea Nitrogen 3 mg/dL (6-20); Calcium 7.2 mg/dL (8.5-10.5); Carbon Dioxide 15 mmol/L (22-29); Chloride 105 mmol/L (98-107); Glucose 200 mg/dL (65-115); Osmolality Calculated 278 mOsm/kg (285-295); Potassium 3.3 mmol/L (3.5-5.1); Sodium 133 mmol/L (136-145)
[2025-02-05] MEDS: iohexol 350 mg/mL 500 mL Btl (per mL) IV (10:26)
--- NOTE | 2025-02-05 12:00 | P.PN_ITS ---
Subjective 2 Subjective: - Patient was seen this morning - She is alert oriented x 3, follows all commands - No nausea, no vomiting, no abdominal p ain - She was transition to a diet overnight , - Anion gap closed, transition to subcu insulin, Lantus - Discussed my concerns for source of in fection - She tells me that she was placed on do xycycline for concerns for sinusitis without improvement - She tells me that she was playing with her dog about a week ago when her dog accidentally clawed her inside her mouth, just above her upper central incisor at the level of the gum -Her dog is vaccinated, vaccinated for r abies, no history of rabies, - Since then she has had a pain in that location - She has had some swelling of her upper lip, in the philtrum, - No headache, no blurry vision, CT facial bone CT/CT facial bones w con [id number] IMPRESSION: 1. Findings of a subperiosteal abscess a nterior to the anterior maxillary spine and heart palate measuring up to 1.8 cm. 2. Periapical abscess involving the left 1st central incisor. 3. Contraction of the left maxillary sin us with mucosal thickening and mild right maxillary sinus mucosal thickening with mild ethmoid sinus mucosal thickening. -Patient already on IV antibiotics, vanc omycin, aztreonam, Flagyl, with a history of penicillin allergy - Spoke to [facility] - Given abscess, location, spoke to [facility], will discuss case with oral maxillary surgery for their consideration of surgical drainage inpatient versus outpatient versus medical management Vitals/I&O/Wt Last Vital Signs Temp 99.0 F 02/05/25 07:21 Pulse 94 02/05/25 10:00 Resp 24 H 02/05/25 10:00 BP 116/75 02/05/25 10:00 Pulse Ox 98 02/05/25 10:33 O2 Del Method Room Air 02/05/25 10:33 02/04/25 02/05/25 02/05/25 22:59 06:59 14:59 Intake Total 2473.8239 / 4535.4819 2428.500 / 6963.9819 926.7 / 926.7 Output Total 1550 / 1550 650 / 2200 Balance 923.8239 / 2985.4819 1778.500 / 4763.9819 926.7 / 926.7 Weight last 48 hrs Weight 47 kg Weight 47.627 kg Weight 47.627 kg Weight 45.359 kg Physical Exam 2 Const: COMMON NORMALS: no acute distress and patient oriented x3 HENMT: OTHER: Patient has swelling above the upper lip, tenderness Swelling and tenderness of the philtrum First to central incisors, palpable tenderness at the gumline, Area appears to be superficial abscess, tender to palpation Posterior pharynx no erythema, no uvular deviation, Nasal pharynx, no palpable tenderness around nasal bone, no facial tenderness to palpation bilateral maxillary sinuses Eye: COMMON NORMALS: Equal, round and reactive pupils present and EOMs intact bilaterally PUPIL: Yes Equal, round and reactive pupils present Resp: COMMON NORMALS: normal respiratory effort, No retractions, No use of accessory muscles and clear to auscultation bilaterally AUSCULTATION: clear to auscultation bilaterally Cardio: COMMON NORMALS: regular rate, regular rhythm, S1 normal heart sound present and S2 normal heart sound present RATE: regular rate RHYTHM: r egular rhythm HEART SOUNDS: S1 normal heart sound present and S2 normal heart sound present GI: COMMON NORMALS: Normal to inspection, nondistended, normoactive bowel sounds present and non-tender Extremity: COMMON NORMALS: no pedal edema Neuro: COMMON NORMALS: patient oriented x3 Psych: COMMON NORMALS: mental status grossly normal Data 02/05/25 04:51 02/05/25 08:55 Micro: Microbiology 02/04/25 12:45 Blood Culture - Preliminary Blood SPECIMEN COLLECTED 02/04/25 12:48 Blood Culture - Preliminary Blood SPECIMEN COLLECTED A&P Assessment and plan 1. DKA (diabetic ketoacidosis): Plan: Diabetic ketoacidosis, now resolved - No known history of type I or type 2 diabetes - Lipase within normal limits - A1c 11 - UA with evidence of UTI - Blood cultures ordered - Anion gap closed, transition to subcu insulin, Lantus Plan - Continue moderate dose sliding scale - Continue Lantus -Diabetic education Subperiosteal abscess anterior to anterior maxillary spine and hard palate measuring up to 1.8 cm, periapical abscess involving left first central incisor CT/CT facial bones w con [id number] IMPRESSION: 1. Findings of a subperiosteal abscess anterior to the anterior maxillary spine and heart palate measuring up to 1.8 cm. 2. Periapical abscess involving the left 1st central incisor. 3. Contraction of the left maxillary sinus with mucosal thickening and mild right maxillary sinus mucosal thickening with mild ethmoid sinus mucosal thickening. -Vancomycin -Aztreonam -Blood cultures -Full code -Lovenox for DVT prophylaxis PDMP PDMP Reviewed: Not Reviewed Attestations 2 Medical Necessity Statement*: Patient requires hospitalization for abscess requiring IV antibiotics, oral maxillary surgery consultation, DKA Diagnoses DKA (diabetic ketoacidosis) E11.10
--- NOTE | 2025-02-05 14:55 | PHA.VACGOAL ---
Vancomycin Goal - Goal Vancomycin Goal:: 15-20 mg/L - Therapy Current therapy:: Other Antibiotic (AZTREONAM/METRONIDAZOLE) Day of therpy:: Day [1]of [] . Actual body weight (kg): 47 kg - Data Labs: WBC 11.48 10^3/uL (3.29-11.43) H 02/05/25 04:51 Corrected WBC Cancelled 02/05/25 04:05 RBC 3.04 10^6/uL (3.85-5.65) L 02/05/25 04:51 Hgb 9.00 g/dL (11.27-16.99) L D 02/05/25 04:51 Hct 26.9 % (36-47) L D 02/05/25 04:51 MCV 88.5 fl (85-98) 02/05/25 04:51 MCH 29.6 pg (27-33) 02/05/25 04:51 MCHC 33.5 g/dL (30-55) 02/05/25 04:51 RDW 11.9 % (12.1-15.1) L 02/05/25 04:51 Sodium 133 mmol/L (136-145) L 02/05/25 08:55 Potassium 3.3 mmol/L (3.5-5.1) L 02/05/25 08:55 Chloride 105 mmol/L (98-107) 02/05/25 08:55 Carbon Dioxide 15 mmol/L (22-29) L 02/05/25 08:55 Anion Gap 16.3 (5-19) 02/05/25 08:55 BUN 3 mg/dL (6-20) L 02/05/25 08:55 Creatinine 0.3 mg/dL (0.5-0.9) L 02/05/25 08:55 GFR Calculation 244.0 mL/min (90-130) H 02/05/25 08:55 Treatment plan:: new consult Regimen:: New start vancomycin for periapical abscess. No prior vancomycin history found. 1000 mg load dose given. Started on maintenance dose of 750 mg q8h.
[2025-02-05] MEDS: ondansetron 2 mg/ML SDV 2 mL 4 MG IVP (21:23)
[2025-02-06] VITALS: BP 123/74; PULSE 89; RESP 16; TEMP 36.5; O2SAT 96
[2025-02-06] MEDS: aztreonam 1,000 MG in sodium chloride 0.9% (plus) 50 ML 100 MG IV ×2 (01:40→12:33)
[2025-02-06] MEDS: pantoprazole 40 mg SDV IVP ×2 (01:40→12:32)
[2025-02-06 04:00] VITALS: BP 131/78; PULSE 89; RESP 17; TEMP 36.6; O2SAT 93
[2025-02-06] MEDS: metroNIDAZOLE IV 500 MG/100 ML PREMIX 100 MG IV ×2 (05:27→14:49)
[2025-02-06 05:30] LABS: Hematocrit 25.0 % (36-47); Hemoglobin 8.80 g/dL (11.27-16.99); Mean Corpuscular HGB Conc 35.2 g/dL (30-55); Mean Corpuscular Hemoglobin 29.7 pg (27-33); Mean Corpuscular Volume 84.5 fl (85-98); Nucleated Red Blood Cells % 0 %; Platelet Count 189 10^3/cmm (157-399); Red Blood Count 2.96 10^6/uL (3.85-5.65); White Blood Count 5.60 10^3/uL (3.29-11.43)
[2025-02-06 05:50] LABS: Anion Gap 14.9 (5-19); Blood Urea Nitrogen 3 mg/dL (6-20); Calcium 7.4 mg/dL (8.5-10.5); Carbon Dioxide 21 mmol/L (22-29); Chloride 104 mmol/L (98-107); Glucose 159 mg/dL (65-115); Osmolality Calculated 284 mOsm/kg (285-295); Sodium 137 mmol/L (136-145)
[2025-02-06 06:11] LABS: Potassium 2.9 mmol/L (3.5-5.1)
[2025-02-06 06:37] LABS: Magnesium 1.7 mg/dL (1.7-2.3)
[2025-02-06] MEDS: ondansetron 2 mg/ML SDV 2 mL 4 MG IVP (06:38)
[2025-02-06 07:10] VITALS: BP 130/78; PULSE 81; RESP 18; TEMP 36.9; O2SAT 97
[2025-02-06] MEDS: insulin glargine 100 units/1 mL 10 UNIT SUBCUT (08:39)
--- NOTE | 2025-02-06 10:02 | PC.CHAP ---
Pastoral Care Encounter/Spiritual Assessment Type of Contact [] Declined astronomy teacher visit [] Patient/Family/Request visit [] Outpatient visit [] Follow-up visit [] Physician referral [] Code/Alert [x] Routine visit [] Staff referral [] Actively dying [] Patient sleeping [] Family support [] [] Out of room [] Palliative care [] [] Receiving care in room [] Pre-surgical visit [] Trauma [] Long length of stay [] ICU visit [] Other: Relational/Emotional Strength [] Patient feels connected with others/family/visitors/staff [] Distress [] Loneliness/isolation [] Abandonment Spirituality of Patient [x] Person of Lila [] Attends Taoism of their Lila [x] Believes in Prayer [] Reads Bible or Jewish materials [] There are Spiritual issues to be addressed Clinical Liaison Interventions [x] Prayer [x] Active listening [] Non-anxious presence [] Spiritual/emotional support [] Crisis/trauma care [] Spiritual counseling [] Bereavement support [] Provided bereavement packet [x] Provided Bible/devotional materials [] Provided toy/stuffed animal, coloring book to patient or family member [] Provided Communion [] Anointing/[place] [] Salvation [x] Completed spiritual assessment [] Other: Impact on Illness or Injury [] Angry [] Fearful [] Anxious [] Often cries [] Exhaustion [] Unable to work [] Unable to attend voodoo [] Unable to walk/stand [] Unable to read [] Unable to drive [] Unable to eat/drink [] Unable to sleep [] Unable to be with family [] Patient intubated [] Other: Summary Time spent with patient 5 min
[2025-02-06 11:47] VITALS: BP 130/80; PULSE 87; RESP 18; TEMP 36.8; O2SAT 95
--- NOTE | 2025-02-06 14:46 | P.DS_ITS ---
Discharge Providers Date of Admission: 02/04/25 11:37 Date of Discharge: February 06, 2025 Attending Provider at Admission: Niko Doe MD Attending Provider at Discharge: Tyler Mena MD Diagnoses at Discharge Discharge Diagnosis 1. DKA (diabetic ketoacidosis): Reason for Visit Reason for Visit: N/V Blood ABD Pain Hospital Course Hospital Course 40-year-old female presented with DKA. She was placed on DKA protocol. She is also noted to have a concern for an abscess in her mouth. Oral maxillofacial was contacted in [place]. This had improved significantly with antibiotics. Imaging was done. Her gap had closed. She was discharged with antibiotics as well as insulin. Recommended follow-up with her PCP in 4 to 7 days. Recommended to follow-up with oral maxillofacial surgery. She is agreeable to plan she was discharged in stable condition. Physical Exam Const: COMMON NORMALS: no acute distress and patient oriented x3 HENMT: OTHER: less swelling Eye: COMMON NORMALS: Equal, round and reactive pupils present and EOMs intact bilaterally PUPIL: Yes Equal, round and reactive pupils present Resp: COMMON NORMALS: normal respiratory effort, No retractions, No use of accessory muscles and clear to auscultation bilaterally AUSCULTATION: clear to auscultation bilaterally Cardio: COMMON NORMALS: regular rate, regular rhythm, S1 normal heart sound present and S2 normal heart sound present RATE: regular rate RHYTHM: regular rhythm HEART SOUNDS: S1 normal heart sound present and S2 normal heart sound present GI: COMMON NORMALS: Normal to inspection, nondistended, normoactive bowel sounds present and non-tender Extremity: COMMON NORMALS: no pedal edema Neuro: COMMON NORMALS: patient oriented x3 Psych: COMMON NORMALS: mental status grossly normal Discharge Data Studies Completed and Pending Completed Studies During Hospitalization Category Date Time Status CT abdomen pelvis w con* [id number] Stat Cat Scan 02/04/25 10:[address] facial bones w con [id number] Stat Cat Scan 02/05/25 09:[address] head wo con* [id number] Routine Cat Scan 02/05/25 09:22 Completed XR chest 1V portable [id number] Routine Exams 02/04/25 13:49 Completed US abdomen limited [id number] Routine Ultrasound 02/04/25 12:56 Completed Pending at discharge Category Date Time Status Basic Metabolic Panel AM LABS Lab 02/07/25 04:00 Ordered Basic Metabolic Panel AM LABS Lab 02/08/25 04:00 Ordered Blood Culture Stat Lab 02/04/25 12:48 Results C-Peptide Stat Lab 02/04/25 18:28 Received Complete Blood Count w/Auto AM LABS Lab 02/07/25 04:00 Ordered Complete Blood Count w/Auto AM LABS Lab 02/08/25 04:00 Ordered Glutamic Acid Decarboxylase AB Routine Lab 02/04/25 18:28 Received Insulin Autoantibody Routine Lab 02/04/25 18:28 Received Zinc Transporter 8 (ZnT8) AB Routine Lab 02/04/25 18:28 Received Radiology Impressions Abdomen/Pelvis CT 02/04/25 10:[address]: [address] evidence of acute intra-abdominal or pelvic pathology. 2. Additional findings, as above. COMMENTS: Consistent with the [employer]'s Incidental Findings Committee white paper (J Am Evie Radiol 2018): Any incidental renal lesion less than 1 cm or classified as too small to characterize, or any incidental cystic renal lesion characterized as simple-appearing, is likely benign. No follow-up imaging is recommended for these lesions per consensus recommendations based on imaging criteria. Abdomen Ultrasound 02/04/25 12:56 IMPRESSION: 1. Indeterminate right hepatic hypoechoic lesion 2.3 x 1.4 x 1.7 cm. Hypoechoic area measuring 2 x 1 x 1 cm adjacent to the gallbladder. These findings are not seen on the CAT scan. Findings could represent fatty sparing. MRI of the liver for further evaluation is advised. 2. Right renal lower pole echogenic lesion measuring 1.8 x 1.8 x 1.6 cm. 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 3. Hepatic steatosis. Chest X-Ray 02/04/25 13:49 IMPRESSION: No acute findings. Face CT 02/05/25 09:22 IMPRESSION: 1. Findings of a subperiosteal abscess anterior to the anterior maxillary spine and heart palate measuring up to 1.8 cm. 2. Periapical abscess involving the left 1st central incisor. 3. Contraction of the left maxillary sinus with mucosal thickening and mild right maxillary sinus mucosal thickening with mild ethmoid sinus mucosal thickening. ADDENDUM: 02/05/25 1149 The findings were verbally communicated via telephone conference with NIKO Whyte at 11:46 AM RESEARCH AND DEVELOPMENT CHEMIST on 02/05/2025. The findings were acknowledged and understood. Head CT 02/05/25 09:22 IMPRESSION: No acute intracranial abnormality. Laboratory Results WBC 5.60 10^3/uL (3.29-11.43) 02/06/25 05:12 Corrected WBC Cancelled 02/05/25 04:05 RBC 2.96 10^6/uL (3.85-5.65) L 02/06/25 05:12 Hgb 8.80 g/dL (11.27-16.99) L 02/06/25 05:12 Hct 25.0 % (36-47) L 02/06/25 05:12 MCV 84.5 fl (85-98) L 02/06/25 05:12 MCH 29.7 pg (27-33) 02/06/25 05:12 MCHC 35.2 g/dL (30-55) D 02/06/25 05:12 RDW 11.7 % (12.1-15.1) L 02/06/25 05:12 Plt Count 189 10^3/cmm (157-399) 02/06/25 05:12 MPV 10.1 fL (7.4-10.4) 02/06/25 05:12 Gran % Cancelled 02/05/25 04:05 Neut % (Auto) 62.4 % 02/06/25 05:12 Lymph % (Auto) 28.4 % 02/06/25 05:12 Parke % (Auto) 8.4 % 02/06/25 05:12 Eos % (Auto) 0.2 % 02/06/25 05:12 Baso % (Auto) 0.2 % 02/06/25 05:12 Neut # (Auto) 3.50 10^3/uL (1.8-7.7) 02/06/25 05:12 Lymph # (Auto) 1.6 10^3/uL (0.8-4.8) 02/06/25 05:12 Parke # (Auto) 0.5 10^3/uL (0.2-0.9) 02/06/25 05:12 Eos # (Auto) 0.0 10^3/uL (0.0-0.8) 02/06/25 05:12 Baso # (Auto) 0.0 10^3/uL (0.0-0.1) 02/06/25 05:12 Absolute Gran (auto) Cancelled 02/05/25 04:05 Nucleated RBC % (auto) 0 % 02/06/25 05:12 Nucleated RBCs # 0.0 /100WBC 02/06/25 05:12 ESR 63 mm/hr (0-15) H 02/04/25 10:44 Specimen Type Arterial 02/04/25 16:05 Sample Site Brachial, right 02/04/25 16:05 ABG pH 7.23 (7.35-7.45) L 02/04/25 16:05 ABG pCO2 24.6 mmHg (35-45) L 02/04/25 16:05 ABG pO2 103.0 mmHg (80.0-100.0) H 02/04/25 16:05 ABG PO2/FiO2 Ratio 490 02/04/25 16:05 ABG HCO3 10.4 mmol/L (22-26) L 02/04/25 16:05 ABG Base Excess -15.5 mmol/L (-2.0-2.0) L 02/04/25 16:05 Shan Test N/a 02/04/25 16:05 Hematocrit 33.8 % (37-47) L 02/04/25 16:05 O2 Delivery Device Room air 02/04/25 16:05 FiO2 21.0 % 02/04/25 16:05 Transit Mixer Driver ID Gd 02/04/25 16:05 Sodium 137 mmol/L (136-145) 02/06/25 05:12 Potassium 2.9 mmol/L (3.5-5.1) L 02/06/25 05:12 Chloride 104 mmol/L (98-107) 02/06/25 05:12 Carbon Dioxide 21 mmol/L (22-29) L 02/06/25 05:12 Anion Gap 14.9 (5-19) 02/06/25 05:12 BUN 3 mg/dL (6-20) L 02/06/25 05:12 Creatinine 0.2 mg/dL (0.5-0.9) L 02/06/25 05:12 GFR Calculation 389.5 mL/min (90-130) H 02/06/25 05:12 Glucose 159 mg/dL (65-115) H 02/06/25 05:12 POC Glucose 209 mg/dL (70-110) H 02/06/25 10:52 Estimat Average Glucose 283 02/04/25 10:44 Hemoglobin A1c 11.5 % (4.0-6.0) H 02/04/25 10:44 Calculated Osmolality 284 mOsm/kg (285-295) L 02/06/25 05:12 Lactic Acid 3.6 mmol/L (0.5-2.2) H 02/04/25 10:44 Lactic Acid (Sepsis) 1.5 mmol/L (0.5-2.2) 02/04/25 12:44 Calcium 7.4 mg/dL (8.5-10.5) L 02/06/25 05:12 Phosphorus 1.0 mg/dL (2.5-4.5) L 02/05/25 01:59 Magnesium 1.7 mg/dL (1.7-2.3) 02/06/25 05:12 Total Bilirubin 0.3 mg/dL (0.15-1.2) 02/05/25 04:51 AST 10 U/L (0-32) 02/05/25 04:51 ALT 11 U/L (0-33) 02/05/25 04:51 Alkaline Phosphatase 52 U/L (35-105) 02/05/25 04:51 Troponin T Baseline < 6 ng/L (0-10) 02/04/25 10:44 Troponin T 120 Minute < 6.0 ng/L (0-10) 02/04/25 12:45 Delta Troponin T 0 ABS# (0-10) 02/04/25 12:45 Troponin T Hi Sens 6Hr < 6.0 ng/L (0-10) 02/04/25 16:00 Troponin T Hi Sens 6Hr Delta 0 ng/L (0-12) 02/04/25 16:00 C-Reactive Protein 79.4 mg/L (0.0-4.9) H 02/04/25 12:45 Total Protein 5.4 g/dL (6.6-8.7) L D 02/05/25 04:51 Albumin 2.9 g/dL (3.5-5.2) L 02/05/25 04:51 Globulin 2.5 g/dL (1.3-4.6) 02/05/25 04:51 Triglycerides 112 mg/dL (0-150) 02/04/25 10:44 Cholesterol 253 mg/dL (0-200) H 02/04/25 10:44 LDL Cholesterol, Calc 157 mg/dL (50-129) H 02/04/25 10:44 HDL Cholesterol 74 mg/dL (60-100) 02/04/25 10:44 LDL/HDL Ratio 2.12 RATIO (0.00-3.22) 02/04/25 10:44 Cholesterol/HDL Ratio 3.42 mg/dL (0.0-4.40) 02/04/25 10:44 Lipase 11 U/L (13-60) L 02/04/25 10:44 Procalcitonin 0.05 ng/mL (0-0.5) 02/04/25 10:44 TSH 2.71 uIU/mL (0.27-4.20) 02/04/25 12:45 HCG, Qual Negative (Negative) 02/04/25 10:44 Urine Color Yellow (Yellow) 02/04/25 11:11 Urine Appearance Clear (CLEAR) 02/04/25 11:11 Urine pH 5.0 (5-7) 02/04/25 11:11 Ur Specific [place] 1.026 (1.005-1.030) 02/04/25 11:11 Urine Protein 1+ (Negative) A 02/04/25 11:11 Urine Glucose (UA) 3+ (Normal) H 02/04/25 11:11 Urine Ketones 4+ (Negative) 02/04/25 11:11 Urine Blood Trace (Negative) A 02/04/25 11:11 Urine Nitrate Negative (Negative) 02/04/25 11:11 Urine Bilirubin Negative (Negative) 02/04/25 11:11 Urine Urobilinogen 0.2 mg/dL (Negative) 02/04/25 11:11 Ur Leukocyte Esterase Negative (Negative) 02/04/25 11:11 Urine RBC 3-5 /hpf (0-2) 02/04/25 11:11 Urine WBC 6-10 /hpf (0-5) 02/04/25 11:11 Ur Squamous Epith Cells 11-20 /hpf (0-5) H 02/04/25 11:11 Amorphous Sediment Not Reportable 02/04/25 11:11 Urine Bacteria 2+ /hpf (NONE) H 02/04/25 11:11 Hyaline Casts 4.52 /lpf 02/04/25 11:11 Urine Yeast 2+ /hpf H 02/04/25 11:11 Vancomycin Trough 5.7 ug/mL (10-15) L 02/06/25 07:39 Urine Opiates Screen Negative ng/mL (Negative) 02/04/25 11:11 Ur Barbiturates Screen Negative ng/mL (Negative) 02/04/25 11:11 Ur Phencyclidine Scrn Negative ng/mL (Negative) 02/04/25 11:11 Ur Amphetamines Screen Negative ng/mL (Negative) 02/04/25 11:11 U Benzodiazepines Scrn Negative ng/mL (Negative) 02/04/25 11:11 Urine Cocaine Screen Negative ng/mL (Negative) 02/04/25 11:11 U Marijuana (THC) Screen Positive ng/mL (Negative) H 02/04/25 11:11 Ethyl Alcohol < 10 mg/dL (0-10) 02/04/25 12:45 Serum Ketones Positive (Negative) H 02/04/25 10:44 Influenza A (PCR) Negative (Negative) 02/04/25 12:49 Influenza Type B (PCR) Negative (Negative) 02/04/25 12:49 RSV (PCR) Negative (Negative) 02/04/25 12:49 SARS-CoV-2 (PCR) Negative (Negative) 02/04/25 12:49 Vitals Last Vital Signs Temp 98.2 F 02/06/25 11:47 Pulse 87 02/06/25 11:47 Resp 18 02/06/25 11:47 BP 130/80 02/06/25 11:47 Pulse Ox 95 02/06/25 11:47 O2 Del Method Room Air 02/06/25 11:47 Discharge Plan Discharge Patient Disposition: Home Condition: Stable Prescriptions: New insulin glargine [Lantus U-100 Insulin] 100 unit/mL Solution 10 unit SUBCUT BREAKFAST 30 Days Qty: 30 0RF insulin lispro [Humalog U-100 Insulin] 100 unit/mL Solution See Rx Instructions .ROUTE .COMPLEX 30 Days Qty: 30 0RF Rx Instructions: with meals 141-180 mg/dl 4 units/SQ 181-220 mg/dl 6 units/SQ 221-260 mg/dl 8 units/SQ 261-300 mg/dl 10 units/SQ 301-350 mg/dl 12 units/SQ 351-400 mg/dl 12 units/SQ greater than 400 mg/dl 12 units/SQ (DME) diabetic supplies, miscellan. Misc See Rx Instructions .Route Qty: 1 0RF Rx Instructions: glucometer 1, needles 90, strips 90, lancets 90 Continued dicyclomine 20 mg tablet 20 mg PO QID PRN (Reason: ibs) etonogestrel-ethinyl estradiol [EluRyng] 0.12-0.015 mg/24 hr ring See Rx Instructions .ROUTE .COMPLEX Rx Instructions: INSERT 1 RING AND WEAR CONTINUOUSLY FOR 3 WEEKS REMOVE FOR 1 WEEK. REPEAT WITH NEW RING. Discontinued doxycycline monohydrate 100 mg capsule 100 mg PO BID Discharge Order = DC NOW: Discharge Order (Routine); Ordered 02/06/25 Ordered By: Tyler Mena Referrals: Amina Cesar FNP [Referring, Primary Care Provider] - 02/17/25 1:30 pm Discharge Diet: Diabetic Discharge Activity: Resume usual activity Patient Instructions: Clindamycin (By mouth), Cefdinir (By mouth), Insulin Glargine (By injection), Insulin Lispro (By injection), Diabetic Ketoacidosis (GEN), Opioid Safety, Patient Portal & [place] Instructions Activity Restrictions/Additional Instructions: check glucose 4 times a day, if glucose less then 70 do not take insulin followup with pcp in one week Discharge Attestations Time Spent in Discharge Care*: greater than 30 min Quality Metrics Clinical Quality Measures [ No reported AMI, CVA or VTE this stay] Coding Level of Care Code 17802 Diagnoses DKA (diabetic ketoacidosis) E11.10
--- NOTE | 2025-02-06 15:09 | PC.NURSE ---
Prescriptions escribed to [facility]. Patient given paper prescription for diabetic supplies.
[2025-02-06 16:38] VITALS: BP 130/80; PULSE 87; RESP 18; TEMP 36.8; O2SAT 95
[2025-02-11 05:50] LABS: GAD Insulin Autoantibody <0.4 U/mL (<0.4)
== END 2025-02-06 16:39 | disposition home or self-care (01) | DRG 638 ==
LOC: ER 11:56 → ICU 12:29 → MEDSURG 02-05 15:52
PROVIDERS: Family Medicine; Admitting Provider Family Medicine; Emergency Provider Emergency Medicine; Visit Provider Internal Medicine
DX: E11.10 Type 2 diabetes mellitus with ketoacidosis without coma (principal); K12.2 Cellulitis and abscess of mouth; N39.0 Urinary tract infection, site not specified; Z79.4 Long term (current) use of insulin
CPT/HCPCS: 36415; 36416; 36600; 70450; 70487; 71045; 74177; 76705; 80048; 80053; 80061; 80202; 80306; 80307; 81001; 82009; 82803; 82962; 83036; 83519; 83605; 83690; 83735; 84100; 84145; 84443; 84484; 84681; 84703; 85025; 85651; 86140; 86337; 86341; 87040; 87637; 93005; 94664; 96365; 96367; 96372; 96375; 99285; J1650; J1815; J2270; J2405; J2470; J2765; J3373; J3490; J7030; J7050; J9999